=== PATIENT | male | born 1975 | race African-American/Black ===

== ENCOUNTER 2019-10-22 11:00 | Emergency (ER) | payer SELFPAY ==
[~2019-10-22] VITALS: Ht 190 cm; Wt 113.0 kg
[2019-10-22] MEDS ORDERED: AUGMENTIN 875 MG TAB (AMOXICILLIN/CLAVULANATE) PO SCH (11:15)
[2019-10-22] MEDS ORDERED: CLINDAMYCIN 300 MG/2ML (CLEOCIN) VIAL IM SCH (11:15)
[2019-10-22] MEDS ORDERED: HYDROcodone/APAP 5 MG/325 MG (LORTAB) TAB PO ONE (11:15)
[2019-10-22] MEDS ORDERED: DOXY100T2 PO (11:18)
[2019-10-22] MEDS ORDERED: HYDR-3870 PO (11:18)
[2019-10-22] MEDS ORDERED: AMOX-358 PO (11:18)
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
--- NOTE | 2019-10-22 11:58 | Diagnostic Imaging Report ---
Indication: Left hand injury 3 views of left hand show no fracture, dislocation or other acute abnormalities. IMPRESSION: Negative left hand Dictated by: Dictated on workstation # [id number]
[2019-10-22] MEDS ORDERED: IBUPROFEN 800 MG (MOTRIN) TAB PO ONE (12:30)
[2019-10-22 12:38] VITALS: BP 178/101
== END 2019-10-22 12:38 | disposition home or self-care (01) ==
LOC: ER 11:02
DX: L08.9 Local infection of the skin and subcutaneous tissue, unspecified (principal)
CPT/HCPCS: 73130